=== PATIENT | female | born 1985 | race Caucasian/White ===

== ENCOUNTER 2023-03-09 21:15 | Observation (INO) ==
[2023-03-09] MEDS ORDERED: 0.9 % SODIUM CHLORIDE 1,000 ML IV ONE (21:17)
[2023-03-09] MEDS ORDERED: ONDANSETRON 4 MG/2 ML VIAL IV ONE ×2 (21:30→23:01)
[2023-03-09] MEDS ORDERED: fentaNYL 100 MCG/2 ML VIAL IV ONE ×2 (21:30→22:39)
[2023-03-09 21:37] LABS: POC Calcium, Ionized 1.18 (1.16-1.32); POC Creatinine 0.7 (0.6-1.2); POC Potassium 3.7 (3.3-5.1)
--- NOTE | 2023-03-09 21:42 | Emergency Department Note ---
Abdominal Pain HPI General Chief Complaint: Abdominal Pain Stated Complaint: RUQ Pain Time Seen by Provider: 03/09/23 21:17 Source: patient Mode of arrival: ambulatory Limitations: no limitations History of Present Illness HPI Narrative: Narrative: Patient presents ED with complaints of abdominal pain that has worsened throughout the day. She rates her pain 9/10. States that dull sharp pain in her right upper side of her abdomen. States it wraps around to the back. States she was here about a week ago and told that she has gallstones. She also states that her amylase was elevated. She patient reports associated nausea and chills. She denies fever, vomiting, hematemesis, melena, medic easier, abdomina l pain in the lower area, constipation, diarrhea, cardiac chest pain, heart palpitation, shortness of breath, abdominal trauma. Patient denies any [id number] medication. She denies any other alleviating or aggravating factors. Related Data Home Medications Medication Instructions Recorded Confirmed aripiprazole 10 mg tablet 10 mg PO QDAY 04/01/22 02/11/23 buspirone 7.5 mg tablet 7.5 mg PO .COMPLEX 04/01/22 02/11/23 mirtazapine 15 mg tablet (Remeron) 15 mg PO QHS PRN anxiety 04/01/22 02/11/23 oxcarbazepine 300 mg tablet 300 mg PO TID 04/01/22 02/11/23 hydrochlorothiazide 25 mg tablet 25 mg PO QDAY 02/11/23 02/11/23 Previous Rx's Medication Instructions Recorded albuterol sulfate 90 mcg/actuation 2 puff inhalation .q4-6h PRN 02/25/22 aerosol inhaler (ProAir HFA) cough, shortness of breath, wheezing #8.5 grams Allergies Allergy/AdvReac Type Severity Reaction Status Date / Time NSAIDS (Non-Steroidal Allergy Unknown Nausea Verified 03/09/23 21:19 Anti-Inflamma trazodone Allergy Unknown Hallucinati Verified 03/09/23 21:19 ons Review of Systems ROS ROS Narrative: Narrative: All systems ED: reviewed and negative except as stated. [facility] Narrative Patient History Narrative: Narrative: Medical/Surgical/Family History All Active Problems (Updated 03/09/23 @ 23:08 by Jelani Hurt DO) Acute epigastric pain (Acute) Acute cholecystitis (Acute) UTI (urinary tract infection), uncomplicated (Acute) Urinary urgency (Acute) Tubal ligation status (Acute) Ear congestion (Acute) Acute diarrhea (Acute) Urinary tract infection (Acute) Sinusitis (Acute) Sacroiliac strain (Chronic) Microscopic hematuria (Chronic) Gastroenteritis (Chronic) Lumbar back pain with radiculopathy affecting left lower extremity (Chronic) Viral syndrome (Chronic) Otitis media (Chronic) Sinusitis (Chronic) Lumbar radiculopathy (Chronic) Tinea corporis (Chronic) Recurrent major depression (Chronic) Bipolar II disorder (Chronic) Mood disorder (Chronic) Panic disorder without agoraphobia (Chronic) Generalized anxiety disorder (Chronic) Chronic depression (Chronic) Toothache (Chronic) Ectopic (Chronic) Multiple acquired skin tags (Chronic) Spinal stenosis of lumbar region (Chronic) Chronic low back pain (Chronic) Abdominal pain (Chronic) Breast symptom (Chronic) Eating disorder (Chronic) Headache (Chronic) Arthritis (Chronic) Painful swelling of joint (Chronic) Weakness (Chronic) Numbness (Chronic) Easy bruising (Chronic) Anxiety (Chronic) Depression (Chronic) Bipolar disorder (Chronic) History of tobacco use (Chronic) Chronic pain (Chronic) Mild obesity (Chronic) Left knee pain (Acute) Major depression, recurrent, chronic (Acute) Generalized anxiety disorder (Acute) Insomnia (Acute) PTSD (post-traumatic stress disorder) (Acute) Medical History Abdominal pain Acute diarrhea Anxiety Arthritis Bipolar disorder Bipolar II disorder Breast symptom change in skin Chronic depression Chronic low back pain Chronic pain Depression Ear congestion Easy bruising Eating disorder Ectopic Gastroenteritis Generalized anxiety disorder Headache History of tobacco use Lumbar back pain with radiculopathy affecting left lower extremity Lumbar radiculopathy Microscopic hematuria Mild obesity Mood disorder Multiple acquired skin tags in groin Numbness Painful swelling of joint Panic disorder without agoraphobia Recurrent major depression Sacroiliac strain Spinal stenosis of lumbar region Tinea corporis Toothache Weakness Surgical History History of lumbar discectomy removed disc, shaved one History of partial hysterectomy History of tonsillectomy Family History Mother Arthritis Back injury Depressive disorder Chronic pain Father Arthritis Back injury Alcoholism Sister Schizophrenia Multiple personality disorder Bipolar disorder PTSD (post-traumatic stress disorder) High blood pressure Chronic pain Diabetes Alcoholism Drug abuse Grandfather Alcoholism Diabetes Chronic pain Arthritis High blood pressure Social History Smoking Status: Former smoker Alcohol Intake Frequency: does not drink Substance Use: does not use Exam Narrative Narrative: Narrative: General Limitations: no limitations General appearance: Absent in distress ENT ENT: Present normal oropharynx and mucous membranes moist Respiratory Respiratory: Present normal lung sounds bilaterally; Absent respiratory distress Cardiovascular Cardiovascular: Present regular rate and normal rhythm Adbominal Abdominal: Present soft, tenderness and normal bowel sounds Expanded Abdominal Abdominal Tenderness: Present RUQ Back Back: Absent CVA tenderness (R) or CVA tenderness (L) Neurological Neurological: Present oriented X3 and normal gait Psychiatric Psychiatric: Present normal affect and normal mood Skin Skin: Present warm (WNL) and intact Course Course Course Narrative: Patient was evaluated for right upper quadrant abdominal pain. Due to patient's pain she was given IV fentanyl. She was given IV Zofran for her nausea. Patient also given IV fluids. Patient's pain and nausea improved after treatment. UA was unremarkable. Labs were unremarkable ducal normal white cell count. There was concern for possible pancreatitis so amylase and lipase were checked and were unremarkable making pancreatitis less likely. Right upper quadrant ultrasound was obtained with image reviewed myself consistent with cholecystitis with no common bile duct dilatation. Case was discussed with on- call surgeon, Dr. Mendieta, who recommends the patient be admitted to the hospital made n.p.o. in preparation for cholecystectomy tomorrow. Plan of care was discussed with patient and she expressed verbal understanding and agreement of plan. Patient be started on IV Zosyn every 6 hours per general surgery recommendations. Consultations Consultation #1: Case discussed with Dr. Mendieta, general surgeon, who recommend the patient be admitted to his service. Requested patient be started on IV Zosyn every 6 hours and kept n.p.o. in preparation for surgery tomorrow. Time: 22:52 Vital Signs Vital signs: Vital Signs Temperature 97.1 F 03/09/23 21:16 Pulse Rate 71 03/09/23 21:16 Respiratory Rate 18 03/09/23 21:16 Blood Pressure 168/92 03/09/23 21:16 Pulse Oximetry (%) 99 03/09/23 21:16 Oxygen Delivery Method Room Air 03/09/23 21:16 Temperature 97.1 F 06/13/23 21:16 Pulse Rate 87 03/09/23 23:02 Respiratory Rate 18 03/09/23 21:16 Blood Pressure 150/86 03/09/23 23:01 Pulse Oximetry (%) 99 03/09/23 21:16 Oxygen Delivery Method Room Air 03/09/23 21:16 MDM MDM Narrative Medical decision making narrative: Narrative: Differential Diagnosis Differential Diagnosis: Cholelithiasis, cholecystitis, pancreatitis Medical Records Medical records reviewed: Yes I reviewed the patient's medical records. Lab Data Lab results reviewed: Yes I reviewed the patient's lab results. 03/09/23 21:43 Labs: Lab Results 03/09/23 03/09/23 03/09/23 Range/Units 21:32 21:43 21:43 WBC 8.5 (4.5-11.0) K/mcL RBC 4.39 (3.59-5.38) M/mcL Hgb 13.7 (11.2-15.7) g/dL Hct 40.1 (34.1-44.9) % POC Hct 42.0 (36-48) MCV 91.3 (80.0-100.0) fL MCH 31.2 (26.0-34.0) pg MCHC 34.2 (31.0-36.0) g/dL RDW 12.4 (11.5-14.5) % Plt Count 314 (140-440) K/mcL MPV 9.8 (8.8-12.5) fL Immature Gran % (Auto) 0.1 (0.0-0.5) % Neut % (Auto) 57.4 (38.0-78.0) % Lymph % (Auto) 33.5 (15.5-49.0) % [place] % (Auto) 8.3 (1.0-12.0) % Eos % (Auto) 0.5 (0.0-7.0) % Baso % (Auto) 0.2 (0.0-2.0) % Lymph # (Auto) 2.83 (1.50-4.80) K/mcL [place] # (Auto) 0.70 (0.10-0.90) K/mcL Eos # (Auto) 0.04 (0.00-0.70) K/mcL Baso # (Auto) 0.02 (0.00-0.30) K/mcL Immature Gran # 0.01 (0.00-0.05) K/mcl Absolute Neutrophils 4.86 (1.80-8.00) K/mcL POC Sodium 141 (133-145) POC Potassium 3.7 (3.3-5.1) POC Chloride 106 (96-108) POC Total CO2 27.0 (22-30) POC Anion Gap 13.0 (8.0-16.0) POC BUN 9 (6-20) POC Creatinine 0.7 (0.6-1.2) POC Glucose 104 (70-105) POC WB Ioniz Calcium 1.18 (1.16-1.32) Total Bilirubin 0.3 (0.1-1.0) mg/dL Direct Bilirubin < 0.2 (0-0.3) mg/dL AST 14 (<32) U/L ALT 17 (<40) U/L Alkaline Phosphatase 57 (39-117) U/L Total Protein 7.0 (5.9-8.4) gm/dL Albumin 4.3 (3.2-5.2) gm/dL Globulin 2.7 (2.2-3.7) gm/dL Amylase 95 (28-100) U/L Lipase 41 (7-60) U/L Radiology Data Radiology results reviewed: Yes I reviewed the patient's radiology results. Radiology results narrative: Right upper quadrant ultrasound obtained with reviewed myself consistent with cholecystitis Core Measures AMI Core Measures Followed: Yes Discharge Plan Patient/Caregiver Discharge Instructions Pt seen by [employer] TECHNICIAN/PA only: No Clinical Impression: Acute cholecystitis Patient Disposition: Xfer As Outpt/Obs ([facility]) Condition: Good Follow up with: Yeimi Ledezma NP-C [Primary Care Provider] - Prescriptions: No Action albuterol sulfate [ProAir HFA] 90 mcg/actuation HFA aerosol inhaler 2 puff inhalation .q4-6h PRN (Reason: cough, shortness of breath, wheezing) Qty: 8.5 0RF Rx Instructions: administer with spacer buspirone 7.5 mg tablet 7.5 mg PO .COMPLEX Rx Instructions: 7.5 mg PO BID and one PRN; aripiprazole 10 mg tablet 10 mg PO QDAY oxcarbazepine 300 mg tablet 300 mg PO TID mirtazapine [Remeron] 15 mg tablet 15 mg PO QHS PRN (Reason: anxiety) hydrochlorothiazide 25 mg tablet 25 mg PO QDAY
[2023-03-09 22:30] LABS: Basophils # (Auto) 0.02 K/mcL (0.00-0.30); Basophils % (Auto) 0.2 % (0.0-2.0); Eosinophils # (Auto) 0.04 K/mcL (0.00-0.70); Eosinophils % (Auto) 0.5 % (0.0-7.0); Hematocrit 40.1 % (34.1-44.9); Hemoglobin 13.7 g/dL (11.2-15.7); Lymphocytes # (Auto) 2.83 K/mcL (1.50-4.80); Lymphocytes % (Auto) 33.5 % (15.5-49.0); Mean Cell Volume 91.3 fL (80.0-100.0); Mean Corpuscular HGB Conc 34.2 g/dL (31.0-36.0); Mean Platelet Volume 9.8 fL (8.8-12.5); Monocytes % (Auto) 8.3 % (1.0-12.0); Neutrophils % (Auto) 57.4 % (38.0-78.0); Platelet Count 314 K/mcL (140-440); RBC 4.39 M/mcL (3.59-5.38); Red Cell Distribution Width 12.4 % (11.5-14.5); WBC 8.5 K/mcL (4.5-11.0)
[2023-03-09 22:53] LABS: ALT/SGPT 17 U/L (<40); AST/SGOT 14 U/L (<32); Albumin 4.3 gm/dL (3.2-5.2); Alkaline Phosphatase 57 U/L (39-117); Amylase 95 U/L (28-100); Bilirubin,Direct < 0.2 mg/dL (0-0.3); Bilirubin,Total 0.3 mg/dL (0.1-1.0); Globulin 2.7 gm/dL (2.2-3.7)
[2023-03-09] MEDS ORDERED: NALOXONE HCL 0.4 MG/ML VIAL IV PRN (23:01)
[2023-03-09] MEDS: PIPERACILLIN SODIUM/TAZOBACTAM 3.375 GM in DEXTROSE 5% IN WATER 50 ML IV SCH (23:43)
[2023-03-10] MEDS: 0.9 % SODIUM CHLORIDE 1,000 ML IV SCH ×2 (00:26→16:27)
[2023-03-10] MEDS: morphine 2 MG/ML VIAL IV PRN ×5 (02:05→20:30)
--- NOTE | 2023-03-10 03:03 | Ultrasound Report ---
CLINICAL INFORMATION: ruq pain COMPARISON: Abdomen and pelvic CT 10/26/2022 ultrasound 03/04/2023 FINDINGS: Two stones, less than 5 mm, are again seen within the gallbladder. Gallbladder wall is normal thickness-2.5 mm. Common bile duct is normal at 5 mm. The liver is mildly enlarged measuring 17 cm in vertical dimension. It is diffusely hyperechoic compatible with marked fatty change. Focal fat sparing noted within the luis hepatis, but no focal lesions. The pancreatic head and body are unremarkable-tail is obscured by bowel gas. Pancreatic duct is normal limits 2 mm. IMPRESSION: Cholelithiasis. Mild hepatomegaly with elevated echotexture compatible with fatty change. Interpreted and Authenticated by: Jace Peoples 03/10/23
[2023-03-10] MEDS: PIPERACILLIN SODIUM/TAZOBACTAM 3.375 GM in DEXTROSE 5% IN WATER 50 ML IV SCH ×5 (05:17→23:13)
--- NOTE | 2023-03-10 07:15 | General Surg History&Physical ---
HPI History of Present Illness Patient information: Note initiated : 03/10/23 at 7:15 am Service Date, if different from initiated Date: [] Patient: Nicole Munoz a 38 y/o F admitted on 03/10/23 for RUQ Pain. Chief Complaint: [] Chief complaint: Abdominal pain History of present illness: Ms. Munoz is a 38 year old F admitted with gallbladder disease. Patient was evaluated in the emergency room on 04 March 2023. At that time she presented with upper epigastric and right upper quadrant pain with radiation through to her back. Examination revealed right upper quadrant tenderness and ultrasound confirmed gallstone disease.. She was treated symptomatically and released to be seen in the office electively. Last evening she developed worsening symptoms associated with nausea. She returned to the emergency room and was found to be having an acute attack cholecystitis. She is admitted and will have cholecystectomy. Review of Systems All systems: reviewed and no additional remarkable complaints except as stated Constitutional Constitutional: Present malaise Gastrointestinal Gastrointestinal: Present abdominal pain, cramping, diarrhea and nausea Psychiatric Psychiatric: Present anxiety, depression and other (Bipolar disorder) PFSH PFSH All Active Problems (Updated 03/10/23 @ 07:22 by Ramiro Mendieta MD) Cholelithiasis and cholecystitis without obstruction (Acute) Acute epigastric pain (Acute) Acute cholecystitis (Acute) UTI (urinary tract infection), uncomplicated (Acute) Urinary urgency (Acute) Tubal ligation status (Acute) Ear congestion (Acute) Acute diarrhea (Acute) Urinary tract infection (Acute) Sinusitis (Acute) Sacroiliac strain (Chronic) Microscopic hematuria (Chronic) Gastroenteritis (Chronic) Lumbar back pain with radiculopathy affecting left lower extremity (Chronic) Viral syndrome (Chronic) Otitis media (Chronic) Sinusitis (Chronic) Lumbar radiculopathy (Chronic) Tinea corporis (Chronic) Recurrent major depression (Chronic) Bipolar II disorder (Chronic) Mood disorder (Chronic) Panic disorder without agoraphobia (Chronic) Generalized anxiety disorder (Chronic) Chronic depression (Chronic) Toothache (Chronic) Ectopic (Chronic) Multiple acquired skin tags (Chronic) Spinal stenosis of lumbar region (Chronic) Chronic low back pain (Chronic) Abdominal pain (Chronic) Breast symptom (Chronic) Eating disorder (Chronic) Headache (Chronic) Arthritis (Chronic) Painful swelling of joint (Chronic) Weakness (Chronic) Numbness (Chronic) Easy bruising (Chronic) Anxiety (Chronic) Depression (Chronic) Bipolar disorder (Chronic) History of tobacco use (Chronic) Chronic pain (Chronic) Mild obesity (Chronic) Left knee pain (Acute) Major depression, recurrent, chronic (Acute) Generalized anxiety disorder (Acute) Insomnia (Acute) PTSD (post-traumatic stress disorder) (Acute) Medical History Abdominal pain Acute diarrhea Anxiety Arthritis Bipolar disorder Bipolar II disorder Breast symptom change in skin Chronic depression Chronic low back pain Chronic pain Depression Ear congestion Easy bruising Eating disorder Ectopic Gastroenteritis Generalized anxiety disorder Headache History of tobacco use Lumbar back pain with radiculopathy affecting left lower extremity Lumbar radiculopathy Microscopic hematuria Mild obesity Mood disorder Multiple acquired skin tags in groin Numbness Painful swelling of joint Panic disorder without agoraphobia Recurrent major depression Sacroiliac strain Spinal stenosis of lumbar region Tinea corporis Toothache Weakness Surgical History History of lumbar discectomy removed disc, shaved one History of partial hysterectomy History of tonsillectomy Family History Mother Arthritis Back injury Depressive disorder Chronic pain Father Arthritis Back injury Alcoholism Sister Schizophrenia Multiple personality disorder Bipolar disorder PTSD (post-traumatic stress disorder) High blood pressure Chronic pain Diabetes Alcoholism Drug abuse Grandfather Alcoholism Diabetes Chronic pain Arthritis High blood pressure Social History household members: family marital status: education level: high school occupational status: employed occupation: [employer] smoking status: Former smoker quit date: 01/28/21 pack-years: 8 smoking status stop date: 09/06/20 alcohol intake frequency: does not drink substance use type: does not use MEDS/ALLERGIES Home Medications and Allergies Home Medications Medication Instructions Recorded Confirmed Type albuterol sulfate 90 mcg/actuation 2 puff inhalation .q4-6h PRN 02/25/22 03/10/23 Rx aerosol inhaler (ProAir HFA) cough, shortness of breath, wheezing #8.5 grams aripiprazole 10 mg tablet 10 mg PO QDAY 04/01/22 03/10/23 History buspirone 7.5 mg tablet 7.5 mg PO .COMPLEX 04/01/22 03/10/23 History mirtazapine 15 mg tablet (Remeron) 15 mg PO QHS PRN anxiety 04/01/22 03/10/23 History oxcarbazepine 300 mg tablet 300 mg PO TID 04/01/22 03/10/23 History hydrochlorothiazide 25 mg tablet 25 mg PO QDAY 02/11/23 03/10/23 History Allergies Allergy/AdvReac Type Severity Reaction Status Date / Time NSAIDS (Non-Steroidal Allergy Unknown Nausea Verified 03/09/23 21:19 Anti-Inflamma trazodone Allergy Unknown Hallucinati Verified 03/09/23 21:19 ons Physical Examination Vital Signs Vital signs: Temp Pulse Resp BP Pulse Ox O2 Del Method 97.9 F 74 18 139/72 99 Room Air 03/10/23 04:00 03/10/23 04:00 03/10/23 04:00 03/10/23 04:00 03/10/23 04:00 03/10/23 04:00 General physical appearance General physical exam: well developed, well nourished, no distress, moderate pain and obese Eyes Eye exam: PERRL and normal ocular movement; negative icteric Head Head exam IM: Present atraumatic, normal inspection and normocephalic Neck Neck exam: no masses, no bruits, trachea midline, no lymphadenopathy and no venous distension Cardiovascular Cardiovascular exam IM: Present normal rate and rhythm, RRR, +S1 and +S2; Absent JVD Respiratory Respiratory exam: normal expansion, normal respiratory effort and clear to auscultation Abdomen Abdomen: Present tender (Epigastric and right upper quadrant pain with tenderness) Integumentary Integumentary: Present no rash, no growths and no abnormal pigmentation Neurologic Neurologic: Present normal coordination and normal sensation Musculoskeletal Musculoskeletal: Present normal gait and normal posture Psychiatric Psychiatric: Present oriented to time, oriented to person, oriented to place, speech is normal, memory intact and other Results Labs 03/09/23 21:43 Labs: Diabetes panel 03/09/23 Range/Units 21:43 AST 14 (<32) U/L ALT 17 (<40) U/L Alkaline Phosphatase 57 (39-117) U/L Total Protein 7.0 (5.9-8.4) gm/dL Albumin 4.3 (3.2-5.2) gm/dL Calcium panel 03/09/23 Range/Units 21:43 Albumin 4.3 (3.2-5.2) gm/dL Adrenal panel 03/09/23 Range/Units 21:43 Total Bilirubin 0.3 (0.1-1.0) mg/dL AST 14 (<32) U/L ALT 17 (<40) U/L Alkaline Phosphatase 57 (39-117) U/L Total Protein 7.0 (5.9-8.4) gm/dL Albumin 4.3 (3.2-5.2) gm/dL All other labs normal. A/P Assessment and plan (1) Cholelithiasis and cholecystitis without obstruction: Status: Acute (2) Recurrent major depression: Status: Chronic (3) Bipolar II disorder: Status: Chronic (4) Mild obesity: Status: Chronic (5) PTSD (post-traumatic stress disorder): Status: Acute Plan Patient has been started on antibiotics She is counseled for laparoscopic cholecystectomy to be performed later today. Time Spent With Patient Time: Total time spent is greater than 50% in coordination of care (as documented) at patient's floor/unit and/or counseling patient:
[2023-03-10] MEDS ORDERED: ONDANSETRON 4 MG/2 ML VIAL ONE (10:40)
[2023-03-10] MEDS ORDERED: LIDOCAINE HCL/PF 100 MG/5 ML SYRINGE IV ONE (10:40)
[2023-03-10] MEDS ORDERED: PROPOFOL 200 MG/20 ML VIAL IV ONE (10:40)
[2023-03-10] MEDS ORDERED: MIDAZOLAM 2 MG/2 ML VIAL ONE (10:40)
[2023-03-10] MEDS ORDERED: DEXAMETHASONE 10 MG/ML VIAL ONE (10:40)
[2023-03-10] MEDS ORDERED: fentaNYL 100 MCG/2 ML VIAL IV ONE (10:40)
[2023-03-10] MEDS ORDERED: HYDROmorphone 1 MG/ML SYRINGE ONE (10:40)
[2023-03-10] MEDS ORDERED: SUGAMMADEX SODIUM 200 MG/2 ML VIAL IV ONE (10:40)
[2023-03-10] MEDS ORDERED: ROCURONIUM 10 MG/ML ML IV ONE (10:40)
[2023-03-10] MEDS ORDERED: MAGNESIUM SULFATE 2 GM/50 ML BAG IV ONE (10:40)
[2023-03-10] MEDS ORDERED: KETOROLAC 30 MG/ML VIAL IV PRN (11:11)
[2023-03-10] MEDS ORDERED: LACTATED RINGERS 250 ML IV PRN (11:11)
[2023-03-10] MEDS ORDERED: PROMETHAZINE 25 MG/ML VIAL IV PRN (11:11)
[2023-03-10] MEDS ORDERED: MEPERIDINE 25 MG/ML VIAL IV PRN (11:11)
[2023-03-10] MEDS ORDERED: IPRATROPIUM/ALBUTEROL 3 ML AMPUL.NEB NEB PRN (11:11)
[2023-03-10] MEDS ORDERED: ONDANSETRON 4 MG/2 ML VIAL IV PRN ×2 (11:11→11:38)
[2023-03-10] MEDS ORDERED: METHOCARBAMOL 1,000 MG/10 ML VIAL IV PRN (11:11)
[2023-03-10] MEDS ORDERED: ACETAMINOPHEN 1,000 MG/100 ML BAG IV ONE (11:11)
[2023-03-10] MEDS ORDERED: diphenhydrAMINE 50 MG/ML VIAL IV PRN (11:11)
[2023-03-10] MEDS ORDERED: LACTATED RINGERS 1,000 ML IV SCH (11:15)
--- NOTE | 2023-03-10 11:30 | Brief Operative Note ---
Brief Operative Note Date of procedure: 03/10/23 Pre-op diagnosis: acute cholecystitis with cholelithiasis Post-op diagnosis: other (acute cholecystitis with cholelithiasis) Procedure: laparoscopic cholecystectomy Grafts/Implants: No Anesthesia: GETA Findings: acute inflammation of gallbladder with small stones Complications: none Surgeon: Ramiro Mendieta Estimated blood loss (cc): 15 Specimens Removed/Pathology: other (gallbladder) Condition: stable Disposition: PACU
[2023-03-10] MEDS ORDERED: HYDROmorphone 1 MG/ML SYRINGE IV PRN (11:34)
[2023-03-10] MEDS ORDERED: oxyCODONE IR 5 MG TABLET PO PRN (11:34)
[2023-03-10] MEDS: fentaNYL 100 MCG/2 ML VIAL IV PRN ×2 (11:57→12:10)
[2023-03-10] MEDS ORDERED: ALBUTEROL SULFATE 60 PUFF INHALER INH PRN (13:04)
[2023-03-10] MEDS ORDERED: MIRTAZAPINE 15 MG TABLET PO PRN (13:04)
[2023-03-10] MEDS ORDERED: BUSPIRONE 7.5 MG PO SCH (13:04)
[2023-03-10] MEDS ORDERED: NON FORMULARY MEDICATION 1 DOSE MISCELL PO ONE (20:30)
[2023-03-11] MEDS: PIPERACILLIN SODIUM/TAZOBACTAM 3.375 GM in DEXTROSE 5% IN WATER 50 ML IV SCH ×2 (05:12→11:14)
[2023-03-11 06:35] LABS: Basophils # (Auto) 0.01 K/mcL (0.00-0.30); Basophils % (Auto) 0.2 % (0.0-2.0); Eosinophils # (Auto) 0.01 K/mcL (0.00-0.70); Eosinophils % (Auto) 0.2 % (0.0-7.0); Hematocrit 36.4 % (34.1-44.9); Hemoglobin 12.3 g/dL (11.2-15.7); Lymphocytes # (Auto) 1.73 K/mcL (1.50-4.80); Lymphocytes % (Auto) 27.8 % (15.5-49.0); Mean Cell Volume 91.7 fL (80.0-100.0); Mean Corpuscular HGB Conc 33.8 g/dL (31.0-36.0); Mean Platelet Volume 9.3 fL (8.8-12.5); Monocytes % (Auto) 9.6 % (1.0-12.0); Neutrophils % (Auto) 61.9 % (38.0-78.0); Platelet Count 281 K/mcL (140-440); RBC 3.97 M/mcL (3.59-5.38); Red Cell Distribution Width 12.1 % (11.5-14.5); WBC 6.2 K/mcL (4.5-11.0)
[2023-03-11 07:19] LABS: ALT/SGPT 33 U/L (<40); AST/SGOT 32 U/L (<32); Albumin 3.5 gm/dL (3.2-5.2); Albumin/Globulin Ratio 1.5 (1.0-2.3); Alkaline Phosphatase 50 U/L (39-117); Bilirubin,Direct < 0.2 mg/dL (0-0.3); Bilirubin,Total 0.5 mg/dL (0.1-1.0); Blood Urea Nitrogen 6 mg/dL (6-20); Calcium 8.7 mg/dL (8.6-10.4); Carbon Dioxide 22 mmol/L (22-30); Chloride 108 mmol/L (96-108); Globulin 2.4 gm/dL (2.2-3.7); Glomerular Filtration Rate 109; Glucose 108 mg/dL (70-105); Lactate Dehydrogenase 148 U/L (135-225); Triglycerides 144 mg/dL (<150); Uric Acid 3.2 mg/dL (2.5-8.0)
[2023-03-11] MEDS ORDERED: ARIPIPRAZOLE 5 MG TABLET PO SCH (09:00)
--- NOTE | 2023-03-23 14:35 | Operative Note ---
DATE OF OPERATION: 03/10/2023 PREOPERATIVE DIAGNOSIS: Acute cholecystitis with cholelithiasis. POSTOPERATIVE DIAGNOSIS: Acute cholecystitis with cholelithiasis. PROCEDURE: Laparoscopic cholecystectomy. SURGEON: Ramiro Mendieta M.D. FINDINGS: Acute inflammation of gallbladder with small stones. DESCRIPTION OF PROCEDURE: Under general anesthesia, the patient's abdomen was prepped and draped in a sterile field. Supraumbilical incision was made. Veress needle was insufflated. Veress needle was inserted uneventfully. Peritoneal cavity was insufflated with 2.5 liters of CO2. A 12 mm port was placed. Laparoscope was placed. An acutely inflamed, densely dilated, thickened gallbladder was encountered. Under videoscopic guidance, a 12 mm port and two 5 mm ports were placed in the right subcostal region. Gallbladder was grasped and positioned. Infundibulum of the gallbladder was dissected using primarily blunt dissection. Cystic duct and cystic artery were identified definitively. Cystic duct was clipped with five clips and divided. Cystic artery was clipped with four clips and divided on the wall of the gallbladder. The gallbladder was from the infrahepatic bed using electrocautery. Most of the dissection was blunt because of the inflammation. Gallbladder was placed in an Endopouch and retrieved. Irrigation was carried out. No drain was needed. CO2 was allowed to escape from the abdomen and the ports were removed. The fascia at the umbilicus was closed with 0 Vicryl. Skin incisions were closed with ralph. Tegaderm dressings were placed. The patient tolerated the procedure well. The patient was awakened from anesthesia uneventfully, transferred to a bed, and taken to the postanesthetic care unit in satisfactory condition. LCS:ector Job ID: [id number] Doc ID: [id number] Ramiro Mendieta M.D.
== END 2023-03-11 14:20 | disposition home or self-care (01) ==
LOC: ED 21:15 → MEDSUR 21:15
PROVIDERS: ADMIT Family Medicine Adult Medicine; ATTEND Family Medicine Adult Medicine